=== PATIENT | male | born 1945 | race Caucasian/White ===

== ENCOUNTER 2018-03-06 10:09 | Emergency (ER) | payer MEDICARE ==
[2018-03-06] MEDS ORDERED: methylPREDNISolone Sod Succ/PF 125 MG/2 ML VIAL ONE (10:49)
== END 2018-03-06 10:56 | disposition home or self-care (01) ==
LOC: BURERS 10:09
DX: L23.7 Allergic contact dermatitis due to plants, except food (principal); I10 Essential (primary) hypertension; F31.9 Bipolar disorder, unspecified
CPT/HCPCS: 96372; J2930